=== PATIENT | male | born 1935 | race Caucasian/White ===

== ENCOUNTER 2019-01-11 15:25 | Emergency (ER) | payer MEDICARE ==
[~2019-01-11] VITALS: Ht 180.3 cm; Wt 70.0 kg
[2019-01-11 15:59] VITALS: Ht 180.3 cm; Wt 70.0 kg
[2019-01-11] MEDS ORDERED: GLUCOPHAGE500 MG PO ×2 (16:01→17:03)
[2019-01-11 17:19] VITALS: BP 151/76
== END 2019-01-11 17:19 | disposition home or self-care (01) ==
LOC: D.ER 15:25
DX: E11.9 Type 2 diabetes mellitus without complications (principal); I10 Essential (primary) hypertension

== ENCOUNTER 2019-09-06 05:25 | Day surgery (SDC) | payer MEDICARE ==
[2019-09-05 13:07] LABS: BASOPHILS 0.3 % (0-2); HEMATOCRIT 41.1 % (42.0-54.0); HEMOGLOBIN 14.2 g/dL (13.5-17.5); IMMATURE GRANULOCYTES 0.3 % (0-5); LYMPHOCYTES 23.9 % (15-50); MCH 32.3 pg (26.0-34.0); MCHC 34.5 g/dL (31.0-37.0); MCV 93.4 fL (80.0-100.0); MEAN PLATELET VOLUME 9.8 fL (7.4-10.4); MONOCYTES 7.7 % (2-11); NEUTROPHILS 64.8 % (40-80); RDW 13.5 % (11.5-14.5); WBC 7.6 10x3/uL (4.8-10.8)
[2019-09-05 13:08] LABS: PLATELET COUNT 250 10x3/uL (130-400)
[2019-09-05 13:32] LABS: CALC OSMOLALITY 285 mosm/kg (275-300); CARBON DIOXIDE 26.3 mmol/L (21.0-32.0); CHLORIDE - SERUM 104 mmol/L (98-107); CREATININE - SERUM 0.9 mg/dL (0.6-1.3); GLUCOSE 128 mg/dL (74-106); POTASSIUM - SERUM 3.8 mmol/L (3.5-5.1); SODIUM 141 mmol/L (136-145); UREA NITROGEN 20 mg/dL (7-18); eGFR NON AFRICAN AMERICAN 85 mL/min (90-120)
[~2019-09-06] VITALS: Ht 180.3 cm; Wt 69.4 kg
--- NOTE | ~2019-09-06 | OP ---
PATIENT NAME: KAT AUGUSTIN MEDICAL RECORD: [id number] :31 LOCATION:[facility] ADMISSION DATE: SURGEON: VALERIANO SRIVASTAVA MD DATE OF OPERATION: 09/06/2019 PREOPERATIVE DIAGNOSES: 1. Right inguinal hernia. 2. Asthma. 3. Diabetes mellitus. 4. Hypertension. 5. Hyperlipidemia. 6. History of cerebrovascular accident, on Plavix. POSTOPERATIVE DIAGNOSES: 1. Right inguinal hernia. 2. Asthma. 3. Diabetes mellitus. 4. Hypertension. 5. Hyperlipidemia. 6. History of cerebrovascular accident, on Plavix. PROCEDURE: Right inguinal hernia repair with medium PHS mesh. SURGEON: Valeriano Srivastava MD REPORT OF PROCEDURE: The patient's right groin was prepped and draped in sterile fashion. An oblique incision was made above the inguinal ligament. Electrocautery was used to dissect through the subcutaneous tissues to the external oblique fascia. This fascia was opened up to the external ring using electrocautery. The ilioinguinal nerve was found and high ligated. A Bobby was then placed around the spermatic cord. The patient had an indirect hernia defect. This hernia sac was freed up from the spermatic cord and pushed back into the abdominal cavity. There was also a thin cord lipoma, which was high ligated with a 3-0 silk tie. An opening was made in the inguinal floor and the preperitoneal space of Retzius was opened up in all directions. A medium PHS mesh was then inserted and sutured down on all 4 sides using multiple interrupted 0 Vicryls. The wound was irrigated out thoroughly with normal saline. The external oblique fascia was closed with running 2-0 Vicryl, Abad's was closed with interrupted 3-0 Vicryl and the skin was closed with running subcutaneous 5-0 Monocryl. A 10 mL of 0.25% Marcaine with epinephrine was infused into the surrounding tissues and the wound was dressed appropriately. COMPLICATIONS: None. CONDITION: Stable. ANESTHESIA: General endotracheal and local. BLOOD LOSS: Minimal. TRANSINT:[id number] Voice Confirmation ID: [id number] DOCUMENT ID: [id number] OPERATIVE REPORT [id number] KAT AUGUSTIN VALERIANO SRIVASTAVA MD CC: DIO STOKES [id number] DICTATION DATE: 09/06/19 0853 [facility] HEAD WET PROCESS: 09/06/19 1245 [facility] [address] [place] [address]
[~2019-09-06 05:25] MED LIST: ASPIRIN EC81 M1 PO; GLUCOPHAGE500 MG PO; PLAVIX75 MG PO; ZOCOR20 MG PO
[2019-09-06 06:17] VITALS: BP 150/72; Ht 180.3 cm; Wt 69.4 kg
[2019-09-06] MEDS ORDERED: HYDROCODON-ACE1 EA10 PO (08:47)
--- NOTE | 2019-09-06 09:56 | NUR ---
0945 FL DIET SERVED.
--- NOTE | 2019-09-06 13:30 | NUR ---
1258 PT UP TO BATHROOM WITH ASSISTANCE AND WAS ABLE TO URINATE A SMALL AMOUNT. 1305 PT BACK IN THE BED. STATES PAIN LEVEL IS 4 OUT OF 10 AND WOULD LIKE A PAIN PILL BEFORE BEING DISCHARGED HOME AND RIDING IN CAR FOR AN HOUR. 1325 PT GIVEN PAIN MEDICATION REQUESTED.
== END 2019-09-06 14:30 | disposition home or self-care (01) ==
LOC: D.OPS 05:25 → D.PAN 07:30 → D.OPS 14:30
PROVIDERS: ATTEND Surgery
DX: K40.90 Unilateral inguinal hernia, without obstruction or gangrene, not specified as recurrent (principal); J45.909 Unspecified asthma, uncomplicated; E11.9 Type 2 diabetes mellitus without complications; I10 Essential (primary) hypertension; E78.5 Hyperlipidemia, unspecified; Z86.73 Personal history of transient ischemic attack (TIA), and cerebral infarction without residual deficits; E78.2 Mixed hyperlipidemia; Z79.84 Long term (current) use of oral hypoglycemic drugs